=== PATIENT | female | born 1975 | race Caucasian/White ===

== ENCOUNTER 2025-06-15 12:55 | Emergency (ER) | payer OTHER, MEDICAID ==
[~2025-06-15] VITALS: Ht 170.2 cm; Wt 68.0 kg
[2025-06-15 13:02] VITALS: O2SAT 97
[2025-06-15] MEDS: CYCLOBENZAPRINE 10MG TABLET PO ONE (16:02)
[2025-06-15] MEDS: LIDOCAINE 5% PATCH TOP STA (16:02)
[2025-06-15] MEDS: KETOROLAC 30MG/ML VIAL IM ONE (16:02)
[2025-06-15] MEDS ORDERED: LIDO700A30 TP (17:41)
[2025-06-15] MEDS ORDERED: CYCL10TA21 MT (17:41)
[2025-06-15] MEDS ORDERED: IBUP-1455 MT (17:41)
[2025-06-15 17:57] VITALS: BP 169/100; PULSE 67; RESP 18; TEMP 36.7; O2SAT 98
== END 2025-06-15 18:01 | disposition home or self-care (01) ==
LOC: ER 12:55
DX: M48.02 Spinal stenosis, cervical region (principal); M54.2 Cervicalgia; I10 Essential (primary) hypertension; V89.2XXA Person injured in unspecified motor-vehicle accident, traffic, initial encounter; Y93.89 Activity, other specified; Y92.410 Unspecified street and highway as the place of occurrence of the external cause; Y99.8 Other external cause status
CPT/HCPCS: 99285; 70450; 72125; 96372; J1885